=== PATIENT | female | born 1980 | race Caucasian/White ===

== ENCOUNTER 2020-12-21 08:59 | Emergency (ER) | payer BC ==
[2020-12-21 09:45] LABS: #Basophils 0.1 10x3/uL (0.0-0.2); #Eosinphils 0.4 10x3/uL (0.0-0.5); #Monocytes 0.8 10x3/uL (0.0-1.1); #Neutrophils 5.6 10x3/uL (1.5-8.4); %Basophils 0.9 % (0.0-2.0); %Eosinophils 4.8 % (0.0-6.0); %Lymphocytes 23.6 % (18.0-47.0); %Monocytes 8.8 % (0.0-10.0); %Neutrophils 61.7 % (40.0-75.0); Hemoglobin 12.9 g/dL (12.0-15.5); Mean Corpuscular HGB CONC 30.9 g/dL (32.0-36.0); Mean Corpuscular Hemoglobin 25.7 pg (27.0-33.0); Mean Corpuscular Volume 83.2 fl (81.6-98.3); Mean Platelet Volume 10.3 fl (7.4-10.4); Platelet Count 354 10x3/uL (150-450); RBC Distribution Width 17.4 % (11.5-14.5); Red Blood Cell (RBC) Count 5.01 10x6/uL (3.90-5.03)
[2020-12-21 09:51] LABS: BHCG - Serum Negative (NEGATIVE); Pregs Control Background? CLEAR/WHITE (CLR/WHITE); Pregs Control Bar Appear? YES (CONTROL BAR)
[2020-12-21 09:57] LABS: ALT (SGPT) 7 U/L (8-55); AST (SGOT) 11 U/L (5-34); Albumin 3.9 g/dL (3.5-5.0); Alkaline Phosphatase 53 U/L (40-110); Anion Gap 11 mmol/L (10-20); BUN (Urea Nitrogen) 13 mg/dL (7.0-18.7); Bilirubin, Total 0.4 mg/dL (0.2-1.2); Calc. Creatinine Clearance 0 mL/min (70-130); Calcium 9.3 mg/dL (7.8-10.44); Carbon Dioxide 30 mmol/L (22-29); Chloride 104 mmol/L (98-107); Globulin 3.3 g/dL (2.4-3.5); Glucose 91 mg/dL (70-105); Potassium 4.4 mmol/L (3.5-5.1); Protein, Total 7.2 g/dL (6.0-8.3); Sodium 141 mmol/L (136-145)
[2020-12-21] MEDS ORDERED: Meclizine HCl 25 MG TAB ONE (10:33)
== END 2020-12-21 11:02 | disposition home or self-care (01) ==
LOC: CSHERS 08:59
DX: R42 Dizziness and giddiness (principal); R10.13 Epigastric pain; R11.0 Nausea
CPT/HCPCS: 80053; 84484; 84703; 85025; 86850; 86900; 86901; 93005

== ENCOUNTER 2023-12-18 09:18 | Day surgery (SDC) | payer BC ==
[2023-12-16 13:30] VITALS: BMI 48.7
[2023-12-18] MEDS ORDERED: Bupivacaine PF 0.5% 30 ML VIAL ONE (09:43)
[2023-12-18] MEDS ORDERED: CEFAZOLIN 2 GM VIAL ONE (10:25)
[2023-12-18] MEDS ORDERED: Rocuronium Bromide 10 MG/ML (10ML VIAL) ONE (10:42)
[2023-12-18] MEDS ORDERED: Midazolam HCl 2 mg/2 ml Vial ONE (10:42)
[2023-12-18] MEDS ORDERED: PROPOFOL 20 ML ONE ×2 (10:42→11:19)
[2023-12-18] MEDS ORDERED: fentaNYL 50 mcg/mL 1 mL Vial ONE ×5 (10:42→12:37)
[2023-12-18] MEDS ORDERED: Ondansetron PF 4 MG/2 ML Vial ONE (10:42)
[2023-12-18] MEDS ORDERED: Dexamethasone 20 MG/5 ML VIAL ONE (10:42)
[2023-12-18] MEDS ORDERED: Glycopyrrolate 0.2 MG/ML 5 ML SYRINGE ONE (10:42)
[2023-12-18] MEDS ORDERED: SUGAMMADEX SODIUM 200 MG/2 ML VIAL ONE (10:43)
[2023-12-18] MEDS ORDERED: EPINEPHrine 1 MG/ML AMP ONE (11:40)
[2023-12-18] MEDS ORDERED: HYDROcodone/Acetaminophen 5/325 mg Tablet PO PRN (12:04)
[2023-12-18] MEDS ORDERED: HYDROcodone/Acetaminophen 5/325 mg Tablet ONE (13:03)
[2023-12-18] MEDS ORDERED: Ondansetron ODT 4 MG TAB ONE (14:10)
== END 2023-12-18 14:15 | disposition home or self-care (01) ==
LOC: CSHSDC 09:18
PROVIDERS: ATTEND Surgery
PROC: 0JBP0ZZ Excision of Left Lower Leg Subcutaneous Tissue and Fascia, Open Approach (ICD-10-PCS; principal; 2023-12-18)
DX: L73.2 Hidradenitis suppurativa (principal); L72.0 Epidermal cyst; I10 Essential (primary) hypertension; E66.01 Morbid (severe) obesity due to excess calories; Z68.42 Body mass index [BMI] 45.0-49.9, adult; Z88.1 Allergy status to other antibiotic agents; Z88.0 Allergy status to penicillin; Z88.8 Allergy status to other drugs, medicaments and biological substances; Z91.041 Radiographic dye allergy status; Z91.013 Allergy to seafood
CPT/HCPCS: 88305; J0171; J0665; J1100; J2250; J2405; J2704; J3010; Q0162